=== PATIENT | male | born 1965 | race Caucasian/White ===

== ENCOUNTER 2017-01-10 20:52 | Observation (INO) | payer BC ==
[2017-01-10] MEDS ORDERED: Sodium Chloride 0.9% 1,000 ML IV ONE (21:10)
--- NOTE | 2017-01-10 21:16 | EDM.PDOC ---
ED HPI GENERAL MEDICAL PROBLEM - General Chief Complaint: Abdominal Pain Stated Complaint: ABDOMINAL PAIN [id number] Time Seen by Provider: 01/10/17 21:11 Source of Information: Reports: Patient, Family History Limitations: Reports: No Limitations - History of Present Illness INITIAL COMMENTS - FREE TEXT/NARRATIVE: states 3 days h/o abd' pain with few bouts of mucous like diarrhoea, no vomiting , no appetite but did have some protein drinks. been travelling. was eval' in [place] with normal labs but no x-rays done which spouse would like. given bentyl but not helping, last night was rolled up in bathroom with pain. tonight not getting better. Bilateral Lower Abdomen Pain Score (Numeric/FACES): 3 - Related Data Allergies Allergy/AdvReac Type Severity Reaction Status Date / Time amoxicillin Allergy Rash Verified 01/10/17 20:58 Home Meds: Home Meds Dicyclomine [Bentyl] 10 - 20 mg PO Q6H 01/10/17 [History] Simvastatin [Zocor] 10 mg PO BEDTIME 01/10/17 [History] ED ROS GENERAL - Review of Systems Review Of Systems: ROS reveals no pertinent complaints other than HPI. ED EXAM, GI/ABD - Physical Exam Exam: See Below Exam Limited By: No Limitations General Appearance: Alert, WD/WN, Mild Distress, Other (distraught) Ears: Hearing Grossly Normal Throat/Mouth: Normal Voice, No Airway Compromise Head: Atraumatic Neck: Non-Tender, Full Range of Motion Respiratory/Chest: No Respiratory Distress Cardiovascular: Regular Rate, Rhythm GI/Abdominal: Soft, Hyperactive Bowel Sounds, Tenderness, Other (minimal periumb region). No: Distention, Guarding, Rebound, Rigidity Neurological: Alert, Oriented, Normal Cognition, Normal Gait, No Motor/Sensory Deficits Psychiatric: Normal Affect, Normal Mood Skin Exam: Warm, Dry Lymphatic: No Adenopathy Course - Vital Signs Last Recorded V/S: Last Vital Signs Temp 36.8 C 01/10/17 22:17 Pulse 60 01/10/17 22:17 Resp 18 01/10/17 22:17 BP 119/75 01/10/17 22:17 Pulse Ox 100 01/10/17 22:17 - Orders/Labs/Meds Orders: Active Orders 24 hr Category Date Time Status Abdomen Pelvis wo Cont [CT] Urgent Exams 01/10/17 21:32 Taken Sodium Chloride 0.9% [Normal Saline] 1,000 ml Med 01/10/17 21:10 Active IV .BOLUS Medication Orders Sodium Chloride (Normal Saline) 1,000 mls @ 500 mls/hr IV .BOLUS ONE Stop: 01/10/17 23:09 Last Admin: 01/10/17 21:21 Dose: 500 mls/hr Labs: Laboratory Tests 01/10/17 01/10/17 Range/Units 21:19 21:19 WBC 9.5 (5.0-10.0) 10^3/uL RBC 5.12 (4.6-6.2) 10^6/uL Hgb 15.8 (14.0-18.0) g/dL Hct 47.5 (40.0-54.0) % MCV 92.8 (80-100) fL MCH 30.9 (27.0-34.0) pg MCHC 33.3 (33.0-35.0) g/dL Plt Count 230 (150-450) 10^3/uL Neut % (Auto) 78.3 H (42.2-75.2) % Lymph % (Auto) 14.3 L (20.5-50.1) % [place] % (Auto) 6.3 (2-8) % Eos % (Auto) 0.8 L (1.0-3.0) % Baso % (Auto) 0.3 (0.0-1.0) % Sodium 135 (135-145) mmol/L Potassium 5.8 H (3.6-5.0) mmol/L Chloride 99 L (101-111) mmol/L Carbon Dioxide 26.0 (21.0-31.0) mmol/L Anion Gap 15.8 BUN 14 (7-18) mg/dL Creatinine 0.8 (0.6-1.3) mg/dL Est Cr Clr Drug Dosing 119.15 mL/min Estimated GFR (MDRD) > 60 BUN/Creatinine Ratio 17.50 Glucose 96 (74-105) mg/dL Calcium 9.0 (8.4-10.2) mg/dl Total Bilirubin 3.6 H (0.2-1.0) mg/dL AST 71 H (10-42) IU/L ALT 25 (10-60) IU/L Alkaline Phosphatase 51 (42-121) IU/L Total Protein 7.5 (6.7-8.2) g/dl Albumin 4.5 (3.2-5.5) g/dl Globulin 3.0 Albumin/Globulin Ratio 1.50 Amylase 64 (28-100) U/L Lipase 41 (22-51) U/L Meds: Medications Generic Name Dose Route Start Last Admin Trade Name Freq PRN Reason Stop Dose Admin Sodium Chloride 1,000 mls @ 500 mls/hr 01/10/17 21:10 01/10/17 21:21 Normal Saline IV 01/10/17 23:09 500 mls/hr .BOLUS ONE Administration - Re-Assessments/Exams Free Text/Narrative Re-Assessment/Exam: 01/10/17 22:[address] Tarango who kindly admitted Pt. Departure - Departure Time of Disposition: 22:25 Disposition: Admitted As Inpatient 66 Condition: good Clinical Impression: Hyperkalemia, Hyperbilirubinemia Abdominal pain Qualifiers: Abdominal location: periumbilical Qualified Code(s): R10.33 - Periumbilical pain - Discharge Information Forms: ED Department Discharge - My Orders Last 24 Hours: My Active Orders 01/10/17 21:10 Sodium Chloride 0.9% [Normal Saline] 1,000 ml IV .BOLUS 01/10/17 21:32 Abdomen Pelvis wo Cont [CT] Urgent - Assessment/Plan Last 24 Hours: My Active Orders 01/10/17 21:10 Sodium Chloride 0.9% [Normal Saline] 1,000 ml IV .BOLUS 01/10/17 21:32 Abdomen Pelvis wo Cont [CT] Urgent
[2017-01-10 21:45] LABS: CHLORIDE,CL 99 mmol/L (101-111); SODIUM,NA 135 mmol/L (135-145)
[2017-01-10] MEDS ORDERED: Dicyclomine 10 MG Cap PO PRN (23:23)
[2017-01-10] MEDS ORDERED: Morphine 2 MG/ML Syringe IVPUSH PRN (23:26)
--- NOTE | 2017-01-10 23:33 | PCM.HP ---
H&P History of Present Illness - General Date of Service: 01/10/17 Admit Problem/Dx: 51-year-old generally healthy gentleman with a history of dyslipidemia. 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 The patient about 8-9 days ago developed diarrhea which lasted about one day. Similar symptoms were present in other family members including the and son. Symptoms have resolved in the next 2 days had no problem. Last Tuesday the patient developed mid abdomen pain associated with chills but no fever. The pain is crampy, moderate to severe. had only small amount of watery bowel movements since. Had no chills, no nausea or vomiting other than one episode when self induced vomiting. the patient went to the emergency room on 09 January. He was told that his creatinine was 1.4 and bilirubin was slightly elevated but he does not remember exact numbers. he denies any dark urine, was drinking but eating very little. He was given a prescription for that until that he has been taking since. The patient has helped the pain for hours at a time but the pain continued to keep on returning. The patient came into the emergency room for further evaluation. He was then given pain medication but was given IV fluids. he feels that the pain has improved but is anticipating that around midnight the pain gets worse since the event there has been having only for 4-6 hours each time. In the emergency room the patient underwent a CAT scan which showed no significant findings. Was noted hyperkalemia and elevated bilirubin. Bilateral Lower Abdomen Pain Score (Numeric/FACES): 3 - Related Data Allergies/Adverse Reactions: Allergies Allergy/AdvReac Type Severity Reaction Status Date / Time amoxicillin Allergy Rash Verified 01/10/17 20:58 Home Medications: Home Meds Dicyclomine [Bentyl] 10 - 20 mg PO Q6H 01/10/17 [History] Simvastatin [Zocor] 10 mg PO BEDTIME 01/10/17 [History] Past Medical History HEENT History: Reports: None Cardiovascular History: Reports: High Cholesterol Respiratory History: Reports: None Gastrointestinal History: Reports: None Musculoskeletal History: Reports: None Neurological History: Reports: None Psychiatric History: Reports: None Endocrine/Metabolic History: Reports: None Hematologic History: Reports: None Immunologic History: Reports: None Oncologic (Cancer) History: Reports: None Dermatologic History: Reports: None - Infectious Disease History Infectious Disease History: Reports: Chicken Pox, Shingles - Past Surgical History HEENT Surgical History: Reports: None Cardiovascular Surgical History: Reports: None Respiratory Surgical History: Reports: None GI Surgical History: Reports: None Male Surgical History: Reports: None Other Male Surgeries/Procedures: donated left kidney in 2000 Neurological Surgical History: Reports: None Musculoskeletal Surgical History: Reports: None Social & Family History - Tobacco Use Smoking Status *Q: Never Smoker Second Hand Smoke Exposure: No - Caffeine Use Caffeine Use: Reports: None - Alcohol Use Days Per Week of Alcohol Use: 1 Number of Drinks Per Day: 0 Total Drinks Per Week: 0 Date of Last Drink: 01/06/17 Time of Last Drink: 18:00 - Recreational Drug Use Recreational Drug Use: Yes H&P Review of Systems - Review of Systems: Review Of Systems: See Below General: Reports: Chills. Denies: Fever Pulmonary: Denies: Shortness of Breath, Wheezing Cardiovascular: Denies: Chest Pain, Edema Gastrointestinal: Reports: Abdominal Pain, Anorexia, Diarrhea (a few days prior to this abdomen pain). Denies: Black Stool, Bloody Stool Genitourinary: Denies: Dysuria Musculoskeletal: Denies: Neck Pain Psychiatric: Reports: No Symptoms Neurological: Reports: No Symptoms Exam - Exam Exam: See Below - Vital Signs Vital Signs: Last Vital Signs Temp 37.3 C 01/10/17 22:50 Pulse 78 01/10/17 22:50 Resp 16 01/10/17 22:50 BP 129/72 01/10/17 22:50 Pulse Ox 100 01/10/17 22:50 Weight: 77.167 kg - Exam General: Alert, Oriented, 4 Neck: Supple, Trachea Midline, 2 Lungs: Clear to Auscultation, Normal Respiratory Effort Cardiovascular: Regular Rate, Regular Rhythm Abdomen: Soft, Tenderness (mild and diffuse), Hyperactive Bowel Sounds. No: Distention, Guarding, Rigidity, Rebound, Splenomegaly, Hernia, Mass Extremities: Normal Inspection Skin: Warm, Dry, Intact Neuro Extensive - Mental Status: Alert, Oriented x3, Normal Mood/Affect, Normal Cognition Psychiatric: Alert, Normal Affect, Normal Mood - Patient Data Result Diagrams: 01/10/17 21:19 01/10/17 21:19 Imaging Impressions last 24 hrs: CT abdomen per reading showed no acute findings *Q Meaningful Use (ADM) - VTE *Q VTE Criteria *Q: - Stroke *Q Stroke Criteria *Q: - AMI *Q AMI Criteria *Q: - Problem List (1) Abdominal pain SNOMED Code(s): 63781752 ICD Code: R10.9 - UNSPECIFIED ABDOMINAL PAIN Status: Acute Current Visit : Yes Qualifiers: Abdominal location: periumbilical Qualified Code(s): R10.33 - Periumbilical pain (2) Hyperbilirubinemia SNOMED Code(s): 40068348 ICD Code: E80.6 - OTHER DISORDERS OF BILIRUBIN METABOLISM Status: Acute Current Visit: Yes (3) Hyperkalemia SNOMED Code(s): 21621038 ICD Code: E87.5 - HYPERKALEMIA Status: Acute Current Visit: Yes Problem List Initiated/Reviewed/Updated: Yes Orders Last 24hrs: Active Orders 24 hr Category Date Time Status BASIC METABOLIC PANEL,BMP [CHEM] AM Lab 01/11/17 05:15 Ordered BASIC METABOLIC PANEL,BMP [CHEM] Routine Lab 01/10/17 23:09 Ordered CBC WITH AUTO DIFF [HEME] AM Lab 01/11/17 05:15 Ordered HEPATIC FUNCTION PANEL,HFP [CHEM] AM Lab 01/11/17 05:11 Ordered HEPATITIS PANEL, ACUTE [REF] Routine Lab 01/10/17 23:10 Ordered UA W/MICROSCOPIC [URIN] Routine Lab 01/10/17 23:12 Uncollected Dicyclomine [Bentyl] Med 01/10/17 23:23 Ordered 10 mg PO Q6H PRN Morphine Med 01/10/17 23:26 Ordered 1 mg IVPUSH Q4H PRN Sodium Chloride 0.9% @ 125 MLS/HR (1000ml) Med 01/10/17 23:15 Ordered Sodium Chloride 0.9% [Normal Saline] 1,000 ml IV ASDIRECTED Medication Orders Dicyclomine HCl (Bentyl) 10 mg PO Q6H PRN PRN Reason: Abdominal Pain Sodium Chloride (Normal Saline) 1,000 mls @ 125 mls/hr IV ASDIRECTED ИВАН Morphine Sulfate (Morphine) 1 mg IVPUSH Q4H PRN PRN Reason: abdominal pain Assessment/Plan Comment:: abdominal pain unclear etiology CT of the abdomen nonrevealing Has mild elevation in bilirubin and blood has no significant right upper quadrant pain, no ductal dilatation. The patient had diarrhea and pain started a few days after that. For now we'll treat the patient symptomatically It seems that the dicyclomine has been helping Add Protonix Clear liquid diet hyperbilirubinemia Repeat liver enzymes in the morning Will get acute hepatitis labs Given the earlier diarrhea in the family and elevated bilirubin If bilirubin not improving consider right upper quadrant ultrasound Hyperkalemia This is an unexpected finding that, The patient's renal function test is good I will repeat her basic metabolic panel to ensure this is not a lab error we'll hydrate the patient, monitor on telemetry If repeat hyperkalemia noted start Kayexalate recheck electrolytes and kidney function tests in the morning
[2017-01-10] MEDS: Sodium Chloride 0.9% 1,000 ML IV SCH (23:35)
[2017-01-10 23:43] LABS: CHLORIDE,CL 102 mmol/L (101-111); SODIUM,NA 137 mmol/L (135-145)
[2017-01-10] MEDS ORDERED: Sodium Chloride 0.9% 10 ML Syringe FLUSH PRN (23:43)
[2017-01-10] MEDS ORDERED: Ondansetron 4 MG/2 ML SDV IVPUSH PRN (23:43)
[2017-01-10] MEDS ORDERED: Zolpidem 5 MG Tab PO PRN (23:43)
[2017-01-10] MEDS ORDERED: Ondansetron 4 MG Tab.DIS PO PRN (23:43)
[2017-01-11] MEDS ORDERED: Pantoprazole 40 MG Tab.CR PO SCH (06:00)
[2017-01-11] MEDS ORDERED: Heparin Sodium 5,000 Units/ML Vial SUBCUT SCH (06:00)
[2017-01-11 06:57] VITALS: BP 129/74
[2017-01-11 07:00] LABS: CHLORIDE,CL 105 mmol/L (101-111); SODIUM,NA 140 mmol/L (135-145)
[2017-01-11] MEDS: Sodium Chloride 0.9% 1,000 ML IV SCH (07:41)
--- NOTE | 2017-01-11 10:29 | PCM.DCSUM1 ---
Discharge Summary - Hospital Course Free Text/Narrative:: 51-year-old generally healthy gentleman with a history of dyslipidemia. 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 The patient about 8-9 days ago developed diarrhea which lasted about one day. Similar symptoms were present in other family members including the and son. Symptoms have resolved in the next 2 days had no problem. Last Tuesday the patient developed mid abdomen pain associated with chills but no fever. The pain is crampy, moderate to severe. had only small amount of watery bowel movements since. Had no chills, no nausea or vomiting other than one episode when self induced vomiting. the patient went to the emergency room on 09 January. He was told that his creatinine was 1.4 and bilirubin was slightly elevated but he does not remember exact numbers. he denies any dark urine, was drinking but eating very little. He was given a prescription for that until that he has been taking since. The patient has helped the pain for hours at a time but the pain continued to keep on returning. The patient came into the emergency room for further evaluation. He was then given pain medication but was given IV fluids. he feels that the pain has improved but is anticipating that around midnight the pain gets worse since the event there has been having only for 4-6 hours each time. In the emergency room the patient underwent a CAT scan which showed no significant findings. Was noted hyperkalemia and elevated bilirubin. After admission I have contacted to the sugar laboratory assistant. It appeared that the blood sample had mild hemolysis. Repeat electrolyte panel showed normal potassium. overnight the patient was given IV hydration. His abdominal pain remained controlled although still present. He did not take further pain medication nor Bentyl. he has been tolerating food and drinking well. Repeat potassium in the morning was normal, bilirubin significantly better. At this point I think it is reasonable to discharge the patient and monitor further as outpatient. Will set up an appointment in a few days with his primary care physician to reevaluate the abdomen pain possibly recheck liver enzymes. Acute Hepatitis panel is pending at the time of discharge he will be discharged in stable, good condition. - Discharge Data Discharge Date: 01/11/17 Discharge Disposition: Home, Self-Care 01 Condition: Good - Discharge Diagnosis/Problem(s) (1) Abdominal pain SNOMED Code(s): 28484256 ICD Code: R10.9 - UNSPECIFIED ABDOMINAL PAIN Status: Acute Current Visit : Yes Qualifiers: Abdominal location: periumbilical Qualified Code(s): R10.33 - Periumbilical pain (2) Hyperbilirubinemia SNOMED Code(s): 92574820 ICD Code: E80.6 - OTHER DISORDERS OF BILIRUBIN METABOLISM Status: Acute Current Visit: Yes - Patient Instructions Diet: Usual Diet as Tolerated Activity: As Tolerated - Discharge Plan Home Medications: Home Meds Dicyclomine [Bentyl] 10 - 20 mg PO Q6H 01/10/17 [History] Simvastatin [Zocor] 10 mg PO BEDTIME 01/10/17 [History] Referrals: Ruth Ann Parnell MD [Primary Care Provider] - (in 2-3 days) - General Info Date of Service: 01/11/17 Functional Status: Reports: pain controlled - Review of Systems General: Denies: Fever Pulmonary: Denies: shortness of breath Cardiovascular: Denies: Chest Pain Gastrointestinal: Reports: Abdominal pain (mild). Denies: Decreased appetite, Diarrhea Genitourinary: Denies: dysuria - Patient Data Vitals - Most Recent: Last Vital Signs Temp 37.1 C 01/11/17 06:56 Pulse 61 01/11/17 06:56 Resp 20 01/11/17 06:56 BP 129/74 01/11/17 06:56 Pulse Ox 96 01/11/17 06:56 Weight - Most Recent: 77.167 kg I&O - Last 24 hours: Intake & Output 01/10/17 01/11/17 01/11/17 22:59 06:59 14:59 Intake Total 1958 Output Total 300 Balance 1658 Lab Results - Last 24 hrs: Laboratory Results - last 24 hr 01/10/17 01/11/17 01/11/17 Range/Units 23:12 00:00 05:50 WBC (5.0-10.0) 10^3/uL RBC (4.6-6.2) 10^6/uL Hgb (14.0-18.0) g/dL Hct (40.0-54.0) % MCV (80-100) fL MCH (27.0-34.0) pg MCHC (33.0-35.0) g/dL Plt Count (150-450) 10^3/uL Neut % (Auto) (42.2-75.2) % Lymph % (Auto) (20.5-50.1) % [place] % (Auto) (2-8) % Eos % (Auto) (1.0-3.0) % Baso % (Auto) (0.0-1.0) % Sodium 137 140 (135-145) mmol/L Potassium 3.8 3.8 (3.6-5.0) mmol/L Chloride 102 105 (101-111) mmol/L Carbon Dioxide 26.0 28.0 (21.0-31.0) mmol/L Anion Gap 12.8 10.8 BUN 13 11 (7-18) mg/dL Creatinine 1.1 1.1 (0.6-1.3) mg/dL Est Cr Clr Drug Dosing 86.72 86.72 mL/min Estimated GFR (MDRD) > 60 > 60 Glucose 98 109 H (74-105) mg/dL Calcium 8.8 8.6 (8.4-10.2) mg/dl Total Bilirubin 2.0 H (0.2-1.0) mg/dL Direct Bilirubin 0.3 H (0.0-0.2) mg/dL Indirect Bilirubin 1.7 AST 16 (10-42) IU/L ALT 14 (10-60) IU/L Alkaline Phosphatase 45 (42-121) IU/L Total Protein 6.5 L (6.7-8.2) g/dl Albumin 3.8 (3.2-5.5) g/dl Globulin 2.7 Albumin/Globulin Ratio 1.41 Urine Color Light yellow (YELLOW) Urine Appearance Clear (CLEAR) Urine pH 7.0 (5.0-9.0) Ur Specific [place] 1.015 (1.005-1.030) Urine Protein Negative (NEGATIVE) Urine Glucose (UA) Negative (NEGATIVE) Urine Ketones Negative (NEGATIVE) Urine Occult Blood Negative (NEGATIVE) Urine Nitrite Negative (NEGATIVE) Urine Bilirubin Negative (NEGATIVE) Urine Urobilinogen 0.2 (0.2-1.0) mg/dL Ur Leukocyte Esterase Negative (NEGATIVE) Urine RBC Not seen /HPF Urine WBC Not seen (0-5/HPF) /HPF Urine Mucus Rare /LPF 01/11/17 Range/Units 05:50 WBC 8.2 (5.0-10.0) 10^3/uL RBC 4.73 (4.6-6.2) 10^6/uL Hgb 14.7 (14.0-18.0) g/dL Hct 45.3 (40.0-54.0) % MCV 95.8 (80-100) fL MCH 31.1 (27.0-34.0) pg MCHC 32.5 L (33.0-35.0) g/dL Plt Count 216 (150-450) 10^3/uL Neut % (Auto) 64.8 (42.2-75.2) % Lymph % (Auto) 25.9 (20.5-50.1) % [place] % (Auto) 6.7 (2-8) % Eos % (Auto) 2.2 (1.0-3.0) % Baso % (Auto) 0.4 (0.0-1.0) % Sodium (135-145) mmol/L Potassium (3.6-5.0) mmol/L Chloride (101-111) mmol/L Carbon Dioxide (21.0-31.0) mmol/L Anion Gap BUN (7-18) mg/dL Creatinine (0.6-1.3) mg/dL Est Cr Clr Drug Dosing mL/min Estimated GFR (MDRD) Glucose (74-105) mg/dL Calcium (8.4-10.2) mg/dl Total Bilirubin (0.2-1.0) mg/dL Direct Bilirubin (0.0-0.2) mg/dL Indirect Bilirubin AST (10-42) IU/L ALT (10-60) IU/L Alkaline Phosphatase (42-121) IU/L Total Protein (6.7-8.2) g/dl Albumin (3.2-5.5) g/dl Globulin Albumin/Globulin Ratio Urine Color (YELLOW) Urine Appearance (CLEAR) Urine pH (5.0-9.0) Ur Specific [place] (1.005-1.030) Urine Protein (NEGATIVE) Urine Glucose (UA) (NEGATIVE) Urine Ketones (NEGATIVE) Urine Occult Blood (NEGATIVE) Urine Nitrite (NEGATIVE) Urine Bilirubin (NEGATIVE) Urine Urobilinogen (0.2-1.0) mg/dL Ur Leukocyte Esterase (NEGATIVE) Urine RBC /HPF Urine WBC (0-5/HPF) /HPF Urine Mucus /LPF Med Orders - Current: Current Medications Dicyclomine HCl (Bentyl) 10 mg PO Q6H PRN PRN Reason: Abdominal Pain Heparin Sodium (Porcine) (Heparin Sodium) 5,000 units SUBCUT Q8HR [facility] Last Admin: 01/11/17 05:35 Dose: 5,000 units Sodium Chloride (Normal Saline) 1,000 mls @ 125 mls/hr IV ASDIRECTED [facility] Last Admin: 01/11/17 07:41 Dose: 125 mls/hr Morphine Sulfate (Morphine) 1 mg IVPUSH Q4H PRN PRN Reason: abdominal pain Ondansetron HCl (Zofran Odt) 4 mg PO Q6H PRN PRN Reason: nausea, able to take PO Ondansetron HCl (Zofran) 4 mg IVPUSH Q6H PRN PRN Reason: Nausea/Vomiting Pantoprazole Sodium (Protonix) 40 mg PO ACBREAKFAST [facility] Last Admin: 01/11/17 07:21 Dose: 40 mg Sodium Chloride (Saline Flush) 10 ml FLUSH ASDIRECTED PRN PRN Reason: Keep Vein Open Zolpidem Tartrate (Ambien) 5 mg PO BEDTIME PRN PRN Reason: Sleep Discontinued Medications Sodium Chloride (Normal Saline) 1,000 mls @ 500 mls/hr IV .BOLUS ONE Stop: 01/10/17 23:09 Last Admin: 01/10/17 21:21 Dose: 500 mls/hr - Exam General: Reports: alert, oriented Neck: Reports: supple Lungs: Reports: Clear to auscultation, Normal respiratory effort Cardiovascular: Reports: Regular Rate, Regular Rhythm Abdomen: Reports: bowel sounds present, soft, no distension, tenderness ( minimal diffuse ) Skin: Reports: warm, dry, intact Neurological: Reports: no new focal deficit Psy/Mental Status: Reports: alert, normal affect, normal mood *Q Meaningful Use (DIS) - VTE *Q VTE Criteria *Q: - Stroke *Q Stroke Criteria *Q: - AMI *Q AMI Criteria *Q:
== END 2017-01-11 11:20 | disposition home or self-care (01) ==
LOC: DL.ED 20:52 → DL.MS 22:36 → INTOOBSV 22:36
PROVIDERS: ADMIT Internal Medicine; ATTEND Internal Medicine
DX: R10.33 Periumbilical pain (principal); E80.6 Other disorders of bilirubin metabolism; E78.5 Hyperlipidemia, unspecified; R19.7 Diarrhea, unspecified; E87.5 Hyperkalemia; Z52.4 Kidney donor; Z90.5 Acquired absence of kidney; Z79.891 Long term (current) use of opiate analgesic; Z79.899 Other long term (current) drug therapy; Z88.1 Allergy status to other antibiotic agents
CPT/HCPCS: 36415; 74176; 80048; 80053; 80074; 80076; 81001; 82150; 83690; 85025; 96360; 96361; 96372; 99285; A9270; G0378; J1644; J7030